=== PATIENT | female | born 1995 | race American Indian/Alaskan Native ===

== ENCOUNTER 2019-05-27 06:14 | Inpatient (IN) | payer OTHER ==
[2019-05-27] MEDS ORDERED: PITOCin/NS 20 UNIT/1000ML DRIP 20,000 MILLIUNITS/1,000 ML BAG IV ONE (07:37)
[2019-05-27] MEDS ORDERED: SUBLIMAZE IV ONE (08:00)
[2019-05-27] MEDS ORDERED: LACTATED RINGERS 1,000 ML IV SCH (08:00)
[2019-05-27] MEDS ORDERED: AMPICILLIN/NS 2 GM/100 ML 2 GM/100 ML BAG IV ONE (08:00)
[2019-05-27 08:20] LABS: Hematocrit 33.1 % (30.3-42.9); Hemoglobin 11.4 gm/dl (10.1-14.3); Mean Corpuscular HGB Conc 35 % (30-34); Mean Corpuscular Volume 80 fl (79-97); Platelet Count 187 K/mm3 (140-440); Red Blood Count 4.13 M/mm3 (3.65-5.03); Red Cell Distribution Width 16.7 % (13.2-15.2)
[2019-05-27] MEDS ORDERED: PITOCin/NS 20 UNIT/1000ML DRIP 20 UNITS/1,000 ML BAG IV SCH ×2 (09:00→13:00)
--- NOTE | 2019-05-27 09:10 | History and Physical Report ---
History of Present Illness Date of examination: 05/27/19 Date of admission: 05/27/19 07:14 Chief complaint: Intense Labor Pains History of present illness: Late entry to care, course complicated by living conditions, Rubella non-immune, sickle cell trait, and Varicella non-immune. No care since 35 weeks; states due to transportation. Past History Past Medical History: no pertinent history Past Surgical History: no surgical history Family/Genetic History: none Social history: single, other (reports living in Group Home earlier in ; now states she moved to [place]) - Obstetrical History Expected Date of Delivery: 05/30/19 Actual Gestation: 39 Week(s) 4 Day(s) : 3 Para: 2 Hx # Term Pregnancies: 2 Number of Living Children: 3 #2 Infant Gender: Male year: 2,[birth year] Birthweight: 3.515 kg Method of Delivery: Vaginal Gestational age at delivery: 28 Complications: none #3 Infant Gender: Female year: 2,018 Birthweight: 2.835 kg Method of Delivery: Vaginal Gestational age at delivery: 39 Complications: other (twin ) #4 Gender: Male year: 2,[birth year] Birthweight: 2.835 kg Method of Delivery: Vaginal Gestational age at delivery: 39 Complications: other (twin ) Medications and Allergies Allergies Allergy/AdvReac Type Severity Reaction Status Date / Time No Known Allergies Allergy Verified 05/27/19 07:29 Home Medications Medication Instructions Recorded Confirmed Last Taken Type Vit-Fe Fumar-FA [ 1 tab PO DAILY 05/27/19 05/27/19 2 Days Ago History Vitamin] ~05/25/19 Active Meds: Active Medications Lactated Ringer's (Lactated Ringers) 1,000 mls @ 125 mls/hr IV DIRECT ANNA Oxytocin/Sodium Chloride (Pitocin/Ns 20 Unit/1000ml Drip) 20 units in 1,000 mls @ 125 mls/hr IV DIRECT ANNA Mineral Oil (Mineral Oil) 30 ml PO QHS PRN PRN Reason: Constipation Review of Systems All systems: negative - Vital Signs Vital signs: Vital Signs Pulse BP 77 119/78 05/27/19 06:31 05/27/19 06:31 Temp Pulse Resp BP Pulse Ox 96.8 F L 90 20 121/74 100 05/27/19 08:15 05/27/19 09:04 05/27/19 08:35 05/27/19 07:26 05/27/19 09:04 - Physical Exam Breasts: Positive: normal Cardiovascular: Regular rate Lungs: Positive: Clear to auscultation, Normal air movement Abdomen: Positive: normal appearance, soft Genitourinary (Female): Positive: normal external genitalia, normal perenium Vagina: Positive: normal moisture Uterus: Positive: enlarged Anus/Rectum: Positive: normal perianal skin Extremities: Positive: normal - Obstetrical FHR: category 1 Uterine Contraction Monitor Mode: External Cervical Dilatation: 8 (moderate amount of thin browish-green meconium stained fluids upon AROM at 0852) Cervical Effacement Percentage: 80 station: -1 Uterine Contraction Frequency (min): 2-3 Uterine Contraction Pattern: Regular Uterine Tone Measurement Phase: Resting Uterine Contraction Intensity: Moderate Results Result Diagrams: 05/27/19 07:57 Abnormal lab results 05/27/19 Range/Units 07:57 WBC 16.6 H (4.5-11.0) K/mm3 MCHC 35 H (30-34) % RDW 16.7 H (13.2-15.2) % All other labs normal. Assessment and Plan A: IUP @ 39 4/7 Weeks Category I Tracing Active Labor GBS Unknown P: Admit to L&D per Routine Orders GBS Prophylaxis AROM IV Pain Control
[2019-05-27] MEDS ORDERED: MINERAL OIL PO PRN (09:30)
[2019-05-27] MEDS ORDERED: METHERGINE IM ONE ×3 (10:25→11:00)
[2019-05-27] MEDS ORDERED: CYTOTEC ONE (10:27)
[2019-05-27] MEDS ORDERED: XYLOCAINE 2% INFILTRATI ONE (10:27)
--- NOTE | 2019-05-27 11:10 | Procedure Note ---
OB Delivery Note - Delivery Date of Delivery: 05/27/19 (1019) Surgeon: RANDOLPH GONZALEZ Estimated blood loss: other (400) - Vaginal Delivery presentation: vertex Delivery position: OA Intrapartum events: meconium Delivery induction: none Delivery augmentation: rupture of membranes Delivery monitor: external FHT, external uterine Route of delivery: Delivery placenta: spontaneous Delivery cord: 3 umbilical vessels Episiotomy: none Delivery laceration: none Anesthesia: none Delivery comments: of a live 8'1 female over a intact perineum under IV pain control with Apgars of 8 and 9 at 1019 on 05/27/2019. Spontaneous crying upon delivery. Cord double clamped and cut by ROSA Gonzalez, not stimulated and placed on warmer with awaiting NICU/RESP team due to meconium stained fluids. Spontaneous delivery of placenta complete and intact with Miller side presenting at 1022. Heavy uterine bleeding immediately after placental delivery. Vigorous external uterine massage, uterus was firm but bleeding still heavy. Given Methergine 0.2mg IM and 1000U of Cytotec placed per rectum. Bladder emptied with In and Out Catheter; 150cc of clear urine voided. With continued external uterine massage, bleeding became light. GBS prophylaxis x 1. Cord blood collected. - Infant A at 1 minute: 8 at 5 minutes: 9 Infant Gender: Female (8'1)
[2019-05-27] MEDS ORDERED: CYTOTEC PR ONE (11:20)
[2019-05-27] MEDS ORDERED: CYTOTEC VG ONE (11:28)
[2019-05-27] MEDS ORDERED: PERCOCET 5/325 PO PRN (12:38)
[2019-05-27] MEDS ORDERED: MILK OF MAGNESIA PO PRN (12:38)
[2019-05-27] MEDS ORDERED: BENADRYL PO PRN (12:38)
[2019-05-27] MEDS ORDERED: SODIUM CHLORIDE FLUSH SYRINGE 10 ML IV NR (13:00)
[2019-05-27] MEDS: IBUPROFEN PO SCH ×2 (15:46→18:42)
[2019-05-27] MEDS: PRENATAL VITAMIN PO SCH (15:46)
[2019-05-27] MEDS: FEOSOL PO SCH (15:46)
[2019-05-28] MEDS: FEOSOL PO SCH ×3 (00:03→23:29)
[2019-05-28] MEDS: IBUPROFEN PO SCH ×2 (00:52→23:29)
[2019-05-28 00:56] LABS: Hemoglobin 10.7 gm/dl (10.1-14.3)
[2019-05-28] MEDS: PRENATAL VITAMIN PO SCH (11:13)
--- NOTE | 2019-05-28 11:25 | Progress Note ---
Assessment and Plan A: PPD#1 s/p 05/27/19 @ 10:19 Stable Desires discharge home today. Reports good help from FOB. Recently moved into apartment and reports having everything she needs for infant P: Routine PP care Discharge home today pending Peds Subjective - Subjective Date of service: 05/28/19 Principal diagnosis: PPD#1 s/p 05/27 @ 10:19 Patient reports: appetite normal, voiding normally, pain well controlled, flatus, ambulating normally, no bowel movement [place]: doing well, nursing well Objective - Vital Signs Latest vital signs: Vital Signs Temp Pulse Resp BP BP Pulse Ox 05/28/19 07:45 98.5 F 73 16 112/79 95 05/28/19 02:02 98.5 F 70 18 108/68 98 05/28/19 01:52 18 05/28/19 00:52 18 05/27/19 21:36 98.7 F 78 18 114/64 100 05/27/19 16:35 98.2 F 71 20 116/75 05/27/19 12:10 97.6 F 79 16 122/75 05/27/19 11:49 105 H 100 05/27/19 11:44 96 H 100 05/27/19 11:39 69 100 05/27/19 11:34 87 136/81 100 05/27/19 11:29 83 100 05/27/19 11:27 86 143/80 05/27/19 11:26 105 H 146/97 Intake and Output 05/27/19 05/28/19 05/28/19 23:59 07:59 15:59 Intake Total 680 600 240 Output Total 400 Balance 280 600 240 Intake: Oral 440 240 Intake, Free Water 240 600 Output: Urine 400 Void 400 Other: Total, Intake Amount 120 240 Total, Output Amount 400 # Voids Void 1 1 1 - Exam Breasts: Present: normal, Cardiovascular: Present: Regular rate, Normal S1, Normal S2, No murmurs Lungs: Present: Clear to auscultation, Normal air movement Abdomen: Present: normal appearance, soft, normal bowel sounds. Absent: distention, tenderness Vulva: both: normal Uterus: Present: firm, fundal height below umbilicus (-1) Extremities: Present: normal Deep Tendon Reflex Grade: Normal +2
--- NOTE | 2019-05-28 11:26 | Discharge Summary ---
Providers - Providers Date of Admission: 05/27/19 07:14 Date of discharge: 05/28/19 Attending physician: HOLLY MCCLELLAN MD Primary care physician: HOLLY MCCLELLAN MD Hospitalization Reason for admission: active labor, IUP at term Delivery: Procedure details: See H&P and delivery note Episiotomy: none Laceration: none Other procedures: none complications: none Discharge diagnosis: IUP at term delivered baby: female Condition at discharge: Good Disposition: DC-01 TO HOME OR SELFCARE Plan - Provider Discharge Summary Activity: routine, no sex for 6 weeks, no heavy lifting 4 weeks, no strenuous exercise Diet: routine Instructions: routine Additional instructions: [] Smoking cessation referral if applicable(refer to patient education folder for contact #) [] Refer to [facility] Booklet Call your doctor immediately for: * Fever > 100.5 * Heavy vaginal bleeding ( >1 pad per hour) * Severe persistent headache * Shortness of breath * Reddened, hot, painful area to leg or breast * Drainage or odor from incision. * Keep incision clean and dry at all times and follow doctor's instructions regarding bathing/showering - Follow up plan Follow up: HOLLY MCCLELLAN MD [Primary Care Provider] - 6 Weeks
[2019-05-28] MEDS ORDERED: M-M-R II VACCINE SUB-Q ONE (12:38)
[2019-05-28] MEDS ORDERED: BOOSTRIX IM ONE (12:38)
[2019-05-29] MEDS: IBUPROFEN PO SCH ×2 (05:35→12:47)
[2019-05-29 10:43] VITALS: BP 114/70
[2019-05-29] MEDS: PRENATAL VITAMIN PO SCH (12:49)
[2019-05-29] MEDS: FEOSOL PO SCH (12:49)
== END 2019-05-29 19:00 | disposition home or self-care (01) | DRG 807 ==
LOC: TRG 06:14 → LD 07:14 → OB 12:24
PROVIDERS: ADMIT Obstetrics & Gynecology; ATTEND Obstetrics & Gynecology
PROC: 10E0XZZ Delivery of Products of Conception, External Approach (ICD-10-PCS; principal; 2019-05-27)
PROC: 10907ZC Drainage of Amniotic Fluid, Therapeutic from Products of Conception, Via Natural or Artificial Opening (ICD-10-PCS; 2019-05-27)
PROC: 3E0234Z Introduction of Serum, Toxoid and Vaccine into Muscle, Percutaneous Approach (ICD-10-PCS; 2019-05-28)
DX: O77.0 Labor and delivery complicated by meconium in amniotic fluid (principal); Z37.0 Single live birth; Z3A.39 39 weeks gestation of pregnancy; Z23 Encounter for immunization
CPT/HCPCS: 36415; 85014; 85018; 85027; 86592; 86850; 86900; 86901; 93005; 93010; G0378; J0290; J2210; J2590; J3010; J7120